=== PATIENT | female | born 1940 | race Caucasian/White ===

== ENCOUNTER 2018-08-05 16:53 | Emergency (ER) | payer MEDICARE ==
--- OUTSIDE RECORDS SUMMARY | 2018-08-05 17:08 | XMS REPORT | Continuity of Care Document ---
:1940 External Reference #:[id number] Author Name Magdalena Alcazar Care Team Providers Name Role Phone Jayda Diaz MD Primary Care Physician Unavailable Payers Date Identification Numbers Payment Provider Subscriber Policy Number: [id number] Medicare Blue o Sejal Raymundo PayID: [id number] [address] [address] [place] [address] Advance Directives Description No Information Available Problems Description No Information Family History Date Family Member(s) Observation Comments General Cancer Social History Type Date Description Comments Sex Unknown Lives With Spouse Occupation Retired ETOH Use Currently consumes alcohol Tobacco Use Start: Unknown End: Patient is a former smoker Unknown Smoking Status Reviewed: 08/05/18 Patient is a former smoker Exercise Type/Frequency Does not exercise Allergies, Adverse Reactions, Alerts Description No Known Drug Allergies Medications Medication Date Status Form Strength Qnty SIG Indications Ordering Provider Shoulder Brace Large 08/05 Active Misc S42.211A F MD Kiara Guidry Bro Brace 08/05 Active 1unit For S42.211A s combined F right nathan Guidry MD humerus and humerus shaft fracture Oxycodone-Acetaminoph 08/05 Active Tablets 5-325mg 56tab 1-2 by s mouth F every 4-6 geeta Guidry as MD needed pain Cyclobenzaprine HCL 08/05 Active Tablets 10mg 60tab 1 tablet s by mouth F tid prn Chao muscle spasm Lisinopril Active Tablets 5mg Take 1 Unknown /0000 Tablet By Mouth Every Day Hydrochlorothiazide 0000 Active Tablets 25mg Take 1 Unknown /0000 Tablet By Mouth Every Day Immunizations Description No Information Available Vital Signs Date Vital Result Comment 08/05/2018 11:20am Height 70 inches 5'10" Weight 180.00 lb Heart Rate 72 /min BP Systolic 128 mmHg BP Diastolic 76 mmHg Respiratory Rate 12 /min Pain Level 4 BMI (Body Mass Index) 25.8 kg/m2 Results Description No Information Available Procedures Description No Information Available Encounters Description No Information Available Plan of Treatment 08/05/2018 - Lavell Guidry, MDS42.211A Unspecified displaced fracture of surgical neck of right humNew Medication:Shoulder Brace Large -Right Bro Brace - For combined right proximal humerus and humerus shaft fractureFollow up:Follow up: August 18, 2018S42.301A Unspecified fracture of shaft of humerus, right arm, initial
--- NOTE | 2018-08-05 17:21 | ED ---
Respiratory - HPI Summary HPI Summary: 78-year-old female presents with shortness of breath and chest pain that resolved three days ago. She states it lasts a couple days. She states that was right-sided lung pain. She does not currently have any pain. States she has shortness breath greatest when she is walking. She denies any chest pain or shortness of breath currently. she admits to occasionally cough. No abdominal pain. No vomiting or nausea vomiting. Pain does not radiate anywhere. Has history of high blood pressure. No other medical conditions. Denies any family cardiac history is nonsmoker. she denies any recent travel. Did recently break her arm. No pain or swelling in calf muscles. - History of Current Complaint Chief Complaint: EDChestPainROMI Stated Complaint: SENT DR MARIN FOR EKG PER Time Seen by Provider: 08/05/18 17:06 Pain Intensity: 4 - Allergy/Home Medications Allergies/Adverse Reactions: Allergies Allergy/AdvReac Type Severity Reaction Status Date / Time No Known Allergies Allergy Verified 08/05/18 17:00 PMH/Surg Hx/FS Hx/Imm Hx Endocrine/Hematology History: Denies: Hx Diabetes Cardiovascular History: Reports: Hx Hypertension - WELL CONTROLLED Musculoskeletal History: Reports: Hx Arthritis Sensory History: Reports: Hx Contacts or Glasses - GLASSES Denies: Hx Hearing Aid Opthamlomology History: Reports: Hx Contacts or Glasses - GLASSES - Surgical History Surgery Procedure, Year, and Place: 2013 LEFT MASTECTOMY JASMY[place]. CAMPOS A TEEN Hx Anesthesia Reactions: No Infectious Disease History: No Infectious Disease History: Denies: Traveled Outside the [place] in Last 30 Days - Family History Known Family History: Positive: Hypertension Negative: Cardiac Disease - Social History Alcohol Use: Daily Alcohol Amount: 1/DAY Substance Use Type: Reports: None Hx Tobacco Use: Yes Smoking Status (MU): Former Smoker Length of Time of Smoking/Using Tobacco: APPROX 15 YRS Have You Smoked in the Last Year: No Review of Systems Negative: Fever Positive: Chest Pain. Negative: Palpitations Positive: Shortness Of Breath, Cough All Other Systems Reviewed And Are Negative: Yes Physical Exam Triage Information Reviewed: Yes Vital Signs On Initial Exam: Initial Vitals Temp Pulse Resp BP Pulse Ox 98 F 100 18 133/76 96 08/05/18 16:57 08/05/18 16:57 08/05/18 16:57 08/05/18 16:57 08/05/18 16:57 Vital Signs Reviewed: Yes Appearance: Positive: Well-Appearing Skin: Positive: Warm, Dry Head/Face: Positive: Normal Head/Face Inspection Eyes: Positive: Normal, EOMI, EARNEST, Conjunctiva Clear ENT: Positive: Normal ENT inspection, Pharynx normal, TMs normal Respiratory/Lung Sounds: Positive: Clear to Auscultation, Breath Sounds Present , Other - nontender chest wall Cardiovascular: Positive: Normal, RRR Abdomen Description: Positive: Nontender, Soft Bowel Sounds: Positive: Present Musculoskeletal: Positive: Normal Neurological: Positive: Normal Psychiatric: Positive: Normal Diagnostics - Vital Signs Vital Signs Temp Pulse Resp BP Pulse Ox 08/05/18 16:57 98 F 100 18 133/76 96 - Laboratory Result Diagrams: 08/05/18 17:35 08/05/18 17:35 Lab Statement: Any lab studies that have been ordered have been reviewed, and results considered in the medical decision making process. - Radiology chest Radiology Interpretation Completed By: ED Physician Summary of Radiographic Findings: nad - CT cta CT Interpretation Completed By: Radiologist Summary of CT Findings: IMPRESSION: 1. Diffuse peripheral reticular fibrotic changes. Dependent consolidation in. both lower lobes could represent atelectasis or superimposed pneumonia. 2. No evidence of pulmonary embolism. 3. Partially visualized comminuted fractures of the proximal right humerus. 4. Other chronic findings, as above. - EKG No standard instances Cardiac Rate: NL EKG Rhythm: Sinus Rhythm Summary of EKG Findings: sinus rhythm, ventricular bigeminy Re-Evaluation - Re-Evaluation First Eval Re-Evaluation Time: 18:06 Comment: still no pain, elevated d-dimer so will get CTA Second Eval Comment: discussed CT results, patient states occasionally cough but with elevated wbc and crp will treat as pneumonia at this time Disposition - Course Course Of Treatment: 78-year-old female presents with right sided chest pain couple days ago. She states she's not had pain in a couple days. She has a right arm fracture that followed up with ortho who sent her here as could not follow up with primary. She states she has occasional shortness of breath when she walks. This is not new. Denies any fever. admits to occasionally cough. On exam nonreproducible chest pain. Lungs clear to auscultation. Heart regular rate and rhythm. ekg shows sinus rhythm with ventricular bigeminy. wbc elevated 13. crp elevated. troponin x2 normal. d-dimer elevated. cta shows no PE but potential pnuemonia. with elevated crp and wbc will treat as such with azithromycin. told to follow up with primary as may need additional respiratory testing for asthma etc and may need further cardiac work up. patient understand and agrees with plan. - Differential Dx - Cardiopulmonary Differential Diagnoses - Cardiopulmonary: CHF, Lower Resp Infection, Pulmonary Embolism - Diagnoses Provider Diagnoses: Chest pain, Shortness of breath, Pneumonia Discharge - Sign-Out/Discharge Documenting (check all that apply): Patient Departure Patient Received Moderate/Deep Sedation with Procedure: No - Discharge Plan Condition: Good Disposition: HOME Prescriptions: Azithromycin TAB* [Zithromax TAB (Z-GABRIEL) 250 mg #6 tabs] 250 mg PO DAILY #4 tab Patient Education Materials: Pneumonia (ED) Referrals: Jayda Diaz MD [Primary Care Provider] - Additional Instructions: will try for potential pneumonia at this time, take azithromycin once a day for 4 days starting tomorrow follow up with primary within 5 days Return to ED if develop any new or worsening symptoms - Billing Disposition and Condition Condition: GOOD Disposition: Home
[2018-08-05 17:50] LABS: ABS Basophils 0.1 10^3/ul (0-0.2); ABS Eosinophils 0.1 10^3/ul (0-0.6); ABS Lymphocytes 1.2 10^3/ul (1.0-4.8); ABS Monocytes 1.1 10^3/ul (0-0.8); ABS Nucleated RBC 0 10^3/ul; Eosinophil % 0.7 %; Hematocrit 41 % (35-47); Hemoglobin 13.8 g/dl (12.0-16.0); Lymphocyte % 8.9 %; Mean Corpuscular HGB Conc 33 g/dl (31-36); Mean Corpuscular Hemoglobin 32 pg (27-31); Mean Corpuscular Volume 96 fL (80-97); Mean Platelet Volume 7.7 fL (7.4-10.4); Nucleated Red Blood Cells % 0; Platelet Count 385 10^3/ul (150-450); Red Cell Distribution Width 15 % (10.5-15); White Blood Count 13.5 10^3/ul (3.5-10.8)
[2018-08-05 18:03] LABS: ALT 55 U/L (7-52); AST 47 U/L (13-39); Albumin 3.8 g/dL (3.2-5.2); Alkaline Phosphatase 81 U/L (34-104); Anion Gap 6 mmol/L (2-11); BUN/Creatinine Ratio 78.3 (8-20); Blood Urea Nitrogen 54 mg/dL (6-24); CO2 Carbon Dioxide 30 mmol/L (22-32); Calcium 9.8 mg/dL (8.6-10.3); Chloride 102 mmol/L (101-111); EGFR African American 100.1 (>60); EGFR Non-African American 82.7 (>60); Globulin 3.7 g/dL (2-4); Glucose 139 mg/dL (70-100); Potassium 3.7 mmol/L (3.5-5.0); Sodium 138 mmol/L (135-145); Total Protein 7.5 g/dL (6.4-8.9)
[2018-08-05 18:05] LABS: Troponin I 0.01 ng/mL (<0.04)
[2018-08-05] MEDS ORDERED: Iohexol 350* (CONTRAST) 500 ML MDV IV ONE (18:07)
[2018-08-05 19:19] LABS: Alcohol < 10 mg/dL (<10)
[2018-08-05 20:10] LABS: C Reactive Protein 152.17 mg/L (<8.01)
[2018-08-05] MEDS ORDERED: Azithromycin TAB* 250 MG PO ONE (20:42)
[2018-08-05 21:16] VITALS: BP 123/74
== END 2018-08-05 21:12 | disposition home or self-care (01) ==
LOC: ED 16:53
DX: S42.301A Unspecified fracture of shaft of humerus, right arm, initial encounter for closed fracture (principal); R07.9 Chest pain, unspecified; J18.9 Pneumonia, unspecified organism; R06.02 Shortness of breath; I10 Essential (primary) hypertension; Z87.891 Personal history of nicotine dependence
CPT/HCPCS: 36415; 71046; 71275; 80053; 80320; 83605; 83880; 84484; 85025; 85379; 86140; 93005; 99284; A9270-GY; G0480; Q9967

== ENCOUNTER 2018-08-16 13:05 | Emergency (ER) | payer MEDICARE ==
[2018-08-16 13:26] VITALS: BP 116/64
--- NOTE | 2018-08-16 13:26 | UC ---
Shortness of Breath HPI - HPI Summary HPI Summary: This is a 78-year-old white female who is brought into the urgent care center by her and son for 2 days of increasing shortness of breath. Relevant to this visit is a fracture of the right humerus diagnosed jul 30 2018. The patient essentially has had difficulty walking, and according to the son has been staying in bed. She was diagnosed on August 05 2018 with pneumonia and started on Zithromax. Subsequent to that, she followed up with her own physician and another antibiotic was prescribed. When she presents to the [facility]. She is significantly short of breath although her pulse ox is 96. She is breathing approximately 24 breaths per minute. She has no complaint of chest pain. She is awake and conversant. The family is concerned about her activities of daily living and her inability to get out of bed except to the bathroom. They also state that her shortness of breath is worse than the previous visit to the emergency department. - History of Current Complaint Stated Complaint: SOB Time Seen by Provider: 08/16/18 13:20 Hx Obtained From: Patient, Family/Mortgage Loan Interviewer - Allergy/Home Medications Allergies/Adverse Reactions: Allergies Allergy/AdvReac Type Severity Reaction Status Date / Time No Known Allergies Allergy Verified 08/05/18 17:00 Home Medications: Home Medications Polyethylene Glycol 3350 [Miralax] 1 packet PO DAILY PRN 08/16/18 [History Confirmed 08/16/18] PMH/Surg Hx/FS Hx/Imm Hx - Additional Past Medical History Additional PMH: PMH: pneumonia, hypertension. mastectomy five years ago. SH: at home in bed. Family hx: cancer Previously Healthy: No - Surgical History Surgical History: Yes Surgery Procedure, Year, and Place: 2013 LEFT MASTECTOMY [place]AY[place]. CAMPOS A TEEN - Family History Known Family History: Positive: Hypertension Negative: Cardiac Disease - Social History Alcohol Use: Daily Alcohol Amount: 1/DAY Substance Use Type: None Smoking Status (MU): Former Smoker Length of Time of Smoking/Using Tobacco: APPROX 15 YRS Have You Smoked in the Last Year: No When Did the Patient Quit Smoking/Using Tobacco: 1970 Household Exposure Type: Cigarettes Review of Systems All Other Systems Reviewed And Are Negative: Yes Respiratory: Positive: Shortness Of Breath Cardiovascular: Positive: Negative Gastrointestinal: Positive: Negative Genitourinary: Positive: Negative Is Patient Immunocompromised?: No Physical Exam Triage Information Reviewed: Yes Appearance: Pain Distress Vital Signs: Appearance: Lying supine; no c/o pain; feels SOB. Eyes: Conjunctiva are clear. Pupils are equal and reactive to light and accommodation. Extra ocular muscle movement is intact. ENT: The hearing is grossly normal, the pharynx is normal, and the TMs are normal. There is no muffled or hoarse voice. No stridor. Neck: The neck is supple and there is no lymphadenopathy. Respiratory: The chest is nontender to palpation and without crepitus. The lungs are clear, there are normal breath sounds, and there is no respiratory distress. No wheezes, rales or rhonchi. Cardiovascular: Heart sounds reveal a regular rate and rhythm. There are no clicks, rubs or murmurs. There are no carotid bruits or thrills. Circulation is grossly intact. Abdomen: The abdomen is soft and nontender. There is no organomegaly. Bowel sounds are present and within normal limits. No point tenderness at McBurneys point. Musculoskeletal: Strength is intact. The patient moves all extremities. Neurological: The patient is alert. Motor and sensory are examination grossly intact. Speech is normal. Psychological: The patient displays age appropriate behavior Skin: Negative for rashes. Shortness of Breath Dx - Course Course Of Treatment: This is a 78-year-old white female who is brought into the urgent care center by her and son for 2 days of increasing shortness of breath. Relevant to this visit is a fracture of the right humerus diagnosed jul 30 2018. The patient essentially has had difficulty walking, and according to the son has been staying in bed. She was diagnosed on August 05 2018 with pneumonia and started on Zithromax. Subsequent to that, she followed up with her own physician and another antibiotic was prescribed. When she presents to the [facility]. She is significantly short of breath although her pulse ox is 96. She is breathing approximately 24 breaths per minute. She has no complaint of chest pain. She is awake and conversant. The family is concerned about her activities of daily living and her inability to get out of bed except to the bathroom. They also state that her shortness of breath is worse than the previous visit to the emergency department. Note is made of her continued bed rest and her history of breast cancer with mastectomy 5 years ago. - Differential Dx/Diagnosis Differential Diagnosis/HQI/PQRI: Pneumonia, Pulmonary Embolism Provider Diagnosis: Shortness of breath Discharge - Sign-Out/Discharge Documenting (check all that apply): Patient Departure All imaging exams completed and their final reports reviewed: No Studies - Discharge Plan Condition: Stable Disposition: TRANS HIGHER LVL OF CARE FAC Referrals: Jayda Diaz MD [Primary Care Provider] - Additional Instructions: Discussed increasing shortness of breath with and son; as well as inability of patient to get out of bed. Patient will be transferred to ED to evaluate increasing shortness of breath. - Billing Disposition and Condition Condition: STABLE Disposition: Trans Higher Lvl of Care Fac
== END 2018-08-16 14:06 | disposition short-term general hospital (02) ==
LOC: UCEAST 13:05
DX: R06.02 Shortness of breath (principal); Z87.891 Personal history of nicotine dependence; I10 Essential (primary) hypertension; Z87.01 Personal history of pneumonia (recurrent)
CPT/HCPCS: 99211; G0463

== ENCOUNTER 2018-08-16 14:31 | Inpatient (IN) | payer MEDICARE ==
--- NOTE | 2018-08-16 15:00 | ED ---
Shortness of Breath - HPI Summary HPI Summary: This patient is a 78 year old F brought in by ambulance to [facility] upon referral from Urgent Care with a chief complaint of SOB since 3 weeks ago. Patient reports that her symptoms have worsened since this morning. The patient also notes that she broke her right arm 3 weeks ago. The patient rates the pain 0/10 in severity. Symptoms aggravated by nothing. Symptoms alleviated by nothing. Patient denies edema or CP. The patient notes that she has been trying to get an appointment to see a bobbin washer but availability has been limited. Patient s son reports that she has an appointment with an orthopedist in 2 days. - History of Current Complaint Time Seen by Provider: 08/16/18 14:51 Hx Obtained From: Patient, Family/Warehouse Delivery Driver - patient's Onset/Duration: Gradual Onset, Lasting Weeks, Still Present, Worse Since - this morning Timing: Constant Current Severity: Mild Dyspnea At: Rest Aggrevating Factors: Nothing Alleviating Factors: Nothing - Allergy/Home Medications Allergies/Adverse Reactions: Allergies Allergy/AdvReac Type Severity Reaction Status Date / Time No Known Allergies Allergy Verified 08/05/18 17:00 PMH/Surg Hx/FS Hx/Imm Hx Endocrine/Hematology History: Denies: Hx Diabetes, Hx Thyroid Disease Cardiovascular History: Reports: Hx Hypertension - WELL CONTROLLED Respiratory History: Denies: Hx Asthma, Hx Chronic Obstructive Pulmonary Disease (COPD) Musculoskeletal History: Reports: Hx Arthritis Sensory History: Reports: Hx Contacts or Glasses - GLASSES Denies: Hx Hearing Aid Opthamlomology History: Reports: Hx Contacts or Glasses - GLASSES - Cancer History Cancer Type, Location and Year: Breast Cancer- mastectomy - Surgical History Surgery Procedure, Year, and Place: 2013 LEFT MASTECTOMY JASMYNEZeyad CAMPOS A TEEN Hx Anesthesia Reactions: No - Family History Known Family History: Positive: Hypertension Negative: Cardiac Disease - Social History Alcohol Use: Daily Alcohol Amount: 1/DAY Substance Use Type: Reports: None Hx Tobacco Use: Yes Smoking Status (MU): Former Smoker Length of Time of Smoking/Using Tobacco: APPROX 15 YRS Have You Smoked in the Last Year: No Review of Systems Negative: Fever Negative: Epistaxis Negative: Chest Pain Positive: Shortness Of Breath Negative: Edema All Other Systems Reviewed And Are Negative: Yes Physical Exam - Summary Physical Exam Summary: VITAL SIGNS: Reviewed. GENERAL: Patient is a well-developed and nourished FEMALE who is lying comfortable in the stretcher. Patient is not in any acute respiratory distress. HEAD AND FACE: No signs of trauma. No ecchymosis, hematomas or skull depressions. No sinus tenderness. EYES: PERRLA, EOMI x 2, No injected conjunctiva, no nystagmus. EARS: Hearing grossly intact. Ear canals and tympanic membranes are within normal limits. MOUTH: Oropharynx within normal limits. NECK: Supple, trachea is midline, no adenopathy, no JVD, no carotid bruit, no c- spine tenderness, neck with full ROM. CHEST: Symmetric, no tenderness at palpation LUNGS: Clear to auscultation bilaterally. No wheezing or crackles. CVS: Regular rate and rhythm, S1 and S2 present, no murmurs or gallops appreciated. ABDOMEN: Soft, non-tender. No signs of distention. No rebound no guarding, and no masses palpated. Bowel sounds are normal. EXTREMITIES: no edema, no cyanosis or clubbing. Decreased mobility in right shoulder secondary to fracture. She is in a shoulder immobilizer. NEURO: Alert and oriented x 3. No acute neurological deficits. Speech is normal and follows commands. SKIN: Dry and warm. Increased turgor of skin Triage Information Reviewed: Yes Vital Signs Reviewed: Yes Diagnostics - Laboratory Result Diagrams: 08/16/18 15:26 08/16/18 15:26 Lab Statement: Any lab studies that have been ordered have been reviewed, and results considered in the medical decision making process. - Radiology CXR Radiology Interpretation Completed By: Radiologist Summary of Radiographic Findings: IMPRESSION: 1. No focal airspace opacification. 2. Unchanged bibasilar predominant fibrotic reticular markings. Dr. Beyer has reviewed this report. - EKG 15:19 Cardiac Rate: NL - at 88 bpm EKG Rhythm: Sinus Rhythm ST Segment: Normal Ectopy: None Summary of EKG Findings: sinus rhythm at 88 bpm with nml axis and no ST elevation. This is a poor quality EKG - Additional Comments Diagnostic Additional Comments: Renal US Interpreted by radiologist. IMPRESSION: 1. Normal-appearing left kidney with no hydronephrosis. 2. Bilateral urinary jets maintained. Dr. Beyer has reviewed this report. Course/Dx - Course Assessment/Plan: This patient is a 78-year-old female who presents to the emergency department with her and son complaining that she is having weakness, unable to ambulate well because of her weakness and she also is becoming short of breath. She also reports that she is unable to ambulate a couple feet because she becomes short of breath. She has an appointment with pulmonology in another week however the symptoms have worsened therefore she came into the emergency department for further workup and management. The patients son also reports that she has been having episodes of confusion. Chest CTA done on 08/05/18 impression: Diffuse peripheral reticular fibrotic changes. The patient in consultation in both lower lobes, representing atelectasis or superimposed pneumonia. No evidence for pulmonary embolism. Patient to be short comminuted fractures of the proximal right humerus. Chest x -ray impression: No acute cuddy pulmonary process. Blood work shows that the room she is awaiting 0.7, hematocrit 46 hemoglobin 14.8 and platelets 383. Sodium is 154, chloride 118, BUNs 46, creatinine .97, glucose 120, AST 72, AST 124, alkaline phosphatase of 210 and CRP of 27.4. Chest x-ray impression: No focal air space opacification. Unchanged bibasilar predominant fibrotic reticular markings. The ED course the patient was given IV fluids, for her dehydration and her hypernatremia. I discuss my physical exam, findings and test results with Dr. Gibson from the hospitalist services and he agrees to admit patient to his services. Patient is hemodynamically stable alert and oriented x 3. - Diagnoses Provider Diagnoses: Dehydration, Hypernatremia - Physician Notifications Discussed Care of Patient With: Linda Gibson Time Discussed With Above Provider: 16:50 Instructed by Provider To: Admit As Inpatient Discharge - Sign-Out/Discharge Documenting (check all that apply): Patient Departure - admit to [facility] Patient Received Moderate/Deep Sedation with Procedure: No - Discharge Plan Condition: Stable Disposition: ADMITTED TO [facility] - Billing Disposition and Condition Condition: STABLE Disposition: Admitted to [facility] - Attestation Statements Document Initiated by Scribe: Yes Documenting Scribe: Irina Godoy Provider For Whom Scribe is Documenting (Include Credential): Larry Beyer Scribe Attestation: IIrina, scribed for Larry Beyer on 08/16/18 at 2006. Scribe Documentation Reviewed: Yes Provider Attestation: The documentation as recorded by the loveibeIrina accurately reflects the service I personally performed and the decisions made by Larry morrow Status of Tammy Document: Viewed
[2018-08-16 15:38] LABS: ABS Basophils 0.1 10^3/ul (0-0.2); ABS Eosinophils 0.5 10^3/ul (0-0.6); ABS Lymphocytes 1.2 10^3/ul (1.0-4.8); ABS Neutrophils 8.8 10^3/ul (1.5-7.7); ABS Nucleated RBC 0 10^3/ul; Eosinophil % 4.5 %; Hematocrit 46 % (33-41); Hemoglobin 14.8 g/dL (12.0-16.0); Lymphocyte % 10.6 %; Mean Corpuscular HGB Conc 32 g/dL (31-36); Mean Corpuscular Hemoglobin 32 pg (27-31); Mean Corpuscular Volume 98 fL (80-97); Mean Platelet Volume 9.2 fL (7.4-10.4); Nucleated Red Blood Cells % 0; Platelet Count 383 10^3/uL (150-450); Red Blood Count 4.69 10^6 /uL (3.70-4.87); Red Cell Distribution Width 15 % (10.5-15); White Blood Count 11.7 10^3/uL (3.5-10.8)
[2018-08-16 15:55] LABS: Albumin 3.7 g/dL (3.2-5.2); BUN/Creatinine Ratio 47.4 (8-20); C Reactive Protein 27.43 mg/L (<8.01); Calcium 9.4 mg/dL (8.6-10.3); EGFR African American 67.6 (>60); EGFR Non-African American 55.8 (>60); Globulin 3.8 g/dL (2-4); Potassium 4.2 mmol/L (3.5-5.0); Total Protein 7.5 g/dL (6.4-8.9)
[2018-08-16 15:57] LABS: Troponin I 0.02 ng/mL (<0.04)
[2018-08-16 15:59] LABS: CKMB ng/mL 0.7 ng/mL (0.6-6.3)
[2018-08-16] MEDS ORDERED: NS 0.9% 1000 ML** 1,000 ML IV ONE (16:36)
[2018-08-16] MEDS ORDERED: Docusate CAP* 100 MG PO PRN (17:28)
[2018-08-16] MEDS ORDERED: Albuterol 2.5 MG/3 ML NEB.SOL* (0.083%) INH PRN (17:28)
[2018-08-16] MEDS ORDERED: cefTRIAXone(*) 1 GM in NS 0.9% 50 ML* 50 ML IVPB ONE (17:42)
[2018-08-16] MEDS ORDERED: Polyethylene Glycol 3350* 17 GM PACKET PO PRN (17:49)
--- NOTE | 2018-08-16 20:02 | HP ---
ADDENDUM NOW INCLUDED ON THIS REPORT CC: Dr. Diaz; Dr. Gregg, Orthopedics * ADMISSION HISTORY AND PHYSICAL: DATE OF ADMISSION: 08/16/18 PRIMARY CARE PROVIDER: Dr. Diaz. ATTENDING FOR THIS ADMISSION: Dr. Linda Oneill.* (DICTATED BY BITA MILLER NP) CHIEF COMPLAINT: Shortness of breath. HISTORY OF PRESENT ILLNESS: This is a very pleasant 78-year-old female patient that started having some issues starting back in July. She had a trip and fall accident with a humerus fracture on 07/30/18. She was experiencing some shortness of breath in a few weeks following her injury. She came to the emergency department on 08/05/18 with a complaint of increasing shortness of breath. At that time, she was given prescription for azithromycin for possibility of pneumonia. She did have a CTA of the chest at that time to rule out PE. The CTA was negative for PE. She did have some peripheral reticular fibrotic changes though and dependent consolidation in both lower lobes, which could represent atelectasis versus a superimposed pneumonia. The patient was discharged to home on oral antibiotics and told to follow up with her PCP. However, the last couple of days, the patient reports she has had increasing shortness of breath; in particular, exertional dyspnea, lack of endurance. Her also reports lack of appetite and noticeable weight loss over the past couple of weeks. The patient does report that she has not had much of an appetite and has not been eating or drinking of late. Today, she presents in the emergency department clinically very dehydrated with some abnormal labs and transaminitis. For these reasons, we were asked to evaluate the patient for admission. PAST MEDICAL HISTORY: The patient's past medical history is significant only for hypertension and breast cancer. PAST SURGICAL HISTORY: The patient's surgical history is significant for mastectomy of the left breast 5 years ago. MEDICATIONS AT HOME: 1. Calcium 600 mg p.o. daily. 2. Glucosamine and chondroitin 1 tab p.o. daily. 3. Lisinopril 5 mg daily. 4. Multivitamin 1 tablet daily. 5. [place]-3 fatty acids 1 cap daily. 6. MiraLAX as needed. 7. She has been on Tamiflu prophylactically for the last 8 days. ALLERGIES: She has no known drug allergies. SOCIAL HISTORY: The patient has a very remote history of smoking when she was in 20s. She quit approximately 50 years ago. She does not drink alcohol. She does not use illicit drugs. She is , lives with her and her son and grandchildren. REVIEW OF SYSTEMS: The patient denies any fever, fatigue, or chills. She does report shortness of breath, but no chest pain. She does feel dry in her own words with anorexia, lack of appetite, and lack of endurance. She denies any nausea or vomiting. No abdominal pain or bloating. Bowel movements are normal. No arthralgias or myalgias. She does have some pain in the right upper extremity secondary to her fracture and no further constitutional complaints. PHYSICAL EXAMINATION GENERAL: Reveals a very thin, somewhat frail, elderly female, but in no acute distress. VITAL SIGNS: Blood pressure 114/64, heart rate 95, respiratory rate 22, O2 saturation 96% on room air with a temperature of 97.2. HEENT: The patient is atraumatic, normocephalic. PERRLA. Nonicteric sclerae. Oral mucosa is very dry. Tongue is pasty in appearance, but midline. NECK: Supple, nontender. No carotid bruit noted. No thyromegaly appreciated. LUNGS: Clear at the apices bilaterally, diminished at the bases, but no wheezing, rhonchi, or rales. CARDIOVASCULAR: S1, S2 present. No murmurs, gallops, or rubs noted. Rate and rhythm are regular. ABDOMEN: Soft, nontender, and nondistended. Positive bowel sounds in all 4 quadrants. No organomegaly noted. : Deferred. MUSCULOSKELETAL: There is no clubbing, no cyanosis, no edema. She has +2 distal pulses palpable, full range of motion. Gross motor and sensation are intact. NEUROLOGIC: Grossly intact. There are no focal deficits. PSYCHIATRIC: She is cooperative and appropriate. SKIN: Warm. Turgor is poor. Quality is very dry and flaky. DIAGNOSTIC STUDIES/LAB DATA: Laboratories: WBCs 11.7, RBCs 4.69, hemoglobin 14.8, hematocrit 46, MCV 98, MCH 32, platelets 383. Sodium 154, potassium 4.2, chloride 118, CO2 of 31, BUN 46, creatinine 0.97, GFR 55.8, glucose 120, lactic acid 1.4, calcium 9.4. Total bilirubin 1.00, AST 72, ALT 124, alk phos 210. Creatine kinase 20, CK-MB 0.7, troponin is negative at 0.02, CRP is 27.43, BNP is 12. Total protein 7.5, albumin 3.7, globulin 3.8. Blood gas: pH is 7.51, CO2 of 36, pO2 of 96, bicarb 29.3, O2 saturation 98.6, base excess of 5.6. Imaging: CTA of the chest as noted above on 08/05/18. Chest x-ray today: Chest x-ray shows no focal airspace opacification, unchanged bibasilar predominant fibrotic reticular markings. EKG: Today's EKG shows regular sinus rhythm with a borderline prolonged QT interval of 485. IMPRESSION: This is a pleasant 78-year-old female patient with history of breast cancer and hypertension, who suffered recent humerus fracture and pneumonia, who presents with acute shortness of breath and dehydration. DIAGNOSES/PLAN: 1. Dehydration, profound. The patient has poor skin turgor and accompanying laboratory values that indicate clinical dehydration. She has received a liter of fluid. We will continue her on normal saline at 75 mL per hour. The patient admits that her p.o. intake has been poor, she has not felt like eating or drinking. We will continue to monitor daily labs. 2. Possible pneumonia with accompanying shortness of breath. The patient was treated with azithromycin as an outpatient. She does have some leukocytosis and had some borderline tachycardia. We will place her empirically on ceftriaxone at this time and continue to monitor her pulmonary status. We also ordered albuterol as needed. Given the reticular changes, my concern is more for fibrotic changes and potential for lung fibrosis. She has never been to a tie bucker or had pulmonary function tests. We will start her on prednisone 50 mg daily and see if she has positive response to this. If she continues to be short of breath, it would be worth then to have a pulmonology consult while she is inpatient. At this point, her pulmonary status is stable and she is not experiencing desaturations. Given the increasing shortness of breath, however, I think a baseline echocardiogram tomorrow would also be prudent to evaluate for left ventricular hypertrophy or any valvular disorders or diastolic dysfunction. 3. Hypertension. The patient is on lisinopril. She is currently normotensive. We will restart tomorrow provided her blood pressure is stable. 4. Protein-calorie malnutrition. The patient endorses significant weight loss in the past 3 weeks, she is unsure how much because she is not weighing herself , but she does state that she has had loss of appetite and her is stating she has lost a significant amount of weight. We will consult Nutrition to further evaluate. In the meantime, we will continue her on regular unrestricted diet and Ensure supplements until she can be seen by Nutrition. 5. Humerus fracture. The patient has been following with Dr. Gregg. She is due for an appointment on Saturday to have her brace adjusted. I have reached out to Dr. Michelet Russell, who is Orthopedics on-call, to see if he can see the patient while she is here in the hospital as she may not be able to make her appointment on Saturday to have her brace adjusted. 6. Transaminitis. The patient does have elevated liver function. AST, ALT, and alk phos are all elevated. This could be secondary to her profound dehydration. She may have been hypotensive at home. It is unclear why her liver enzymes are elevated. At this point, I think of doing a liver ultrasound to ensure there are no changes and rechecking LFTs in the morning. 7. Hyponatremia. Sodium is 154 and she also has elevated BUN and creatinine. I think these are all secondary to her dehydration. She is receiving fluids and we will recheck these labs in the morning. DVT prophylaxis: The patient will be placed on heparin. Diet: Regular unrestricted with Ensure as tolerated. Nutrition has also been consulted. Disposition: The patient will be admitted to medical service. TIME SPENT: Approximately 65 minutes interviewing the patient and evaluating admission plan of care. This plan of care has been discussed with Dr. Linda Oneill, who is in agreement. BITA MILLER, SHEREEN [id number]/[facility] #: [id number] [id number]/CPS #: [id number] ROGE
[2018-08-16] MEDS: predniSONE TAB* 50 MG PO SCH (20:09)
[2018-08-16] MEDS: NS 0.9% 1000 ML** 1,000 ML IV SCH (20:10)
--- NOTE | 2018-08-16 20:11 | HP ---
ADMISSION HISTORY AND PHYSICAL: ADDENDUM: DIAGNOSES: 1. Transaminitis. The patient does have elevated liver function. AST, ALT, and alk phos are all elevated. This could be secondary to her profound dehydration. She may have been hypotensive at home. It is unclear why her liver enzymes are elevated. At this point, I think of doing a liver ultrasound to ensure there are no changes and rechecking LFTs in the morning. 2. Hyponatremia. Sodium is 154 and she also has elevated BUN and creatinine. I think these are all secondary to her dehydration. She is receiving fluids and we will recheck these labs in the morning. BITA MILLER, SHEREEN [id number]/[facility] #: [id number] ROGE
[2018-08-16] MEDS: Heparin VIAL(*) 5000 UNITS/ML VIAL (FIVE THOUSAND) SUBCUT SCH (20:55)
[2018-08-17] MEDS: Heparin VIAL(*) 5000 UNITS/ML VIAL (FIVE THOUSAND) SUBCUT SCH ×2 (05:25→12:56)
[2018-08-17 06:36] LABS: ABS Basophils 0 10^3/ul (0-0.2); ABS Eosinophils 0 10^3/ul (0-0.6); ABS Lymphocytes 0.5 10^3/ul (1.0-4.8); ABS Monocytes 0.1 10^3/ul (0-0.8); ABS Neutrophils 5.5 10^3/ul (1.5-7.7); ABS Nucleated RBC 0 10^3/ul; Eosinophil % 0.1 %; Hematocrit 40 % (33-41); Lymphocyte % 8.6 %; Mean Corpuscular HGB Conc 32 g/dL (31-36); Mean Corpuscular Hemoglobin 32 pg (27-31); Mean Corpuscular Volume 99 fL (80-97); Mean Platelet Volume 9.3 fL (7.4-10.4); Nucleated Red Blood Cells % 0.1; Platelet Count 329 10^3/uL (150-450); Red Blood Count 4.08 10^6 /uL (3.70-4.87); Red Cell Distribution Width 15 % (10.5-15); White Blood Count 6.2 10^3/uL (3.5-10.8)
[2018-08-17 06:53] LABS: Albumin 3.2 g/dL (3.2-5.2); BUN/Creatinine Ratio 45.9 (8-20); Calcium 8.6 mg/dL (8.6-10.3); EGFR African American 78.7 (>60); Globulin 3.3 g/dL (2-4); Potassium 4.1 mmol/L (3.5-5.0); Total Bilirubin 0.7 mg/dL (0.2-1.0); Total Protein 6.5 g/dL (6.4-8.9)
[2018-08-17] MEDS: predniSONE TAB* 50 MG PO SCH (08:58)
[2018-08-17] MEDS: Oseltamivir CAP* 75 MG CAP PO SCH (08:58)
[2018-08-17] MEDS: Lisinopril TAB* 5 MG PO SCH (08:59)
[2018-08-17] MEDS: NS 0.9% 1000 ML** 1,000 ML IV SCH (09:01)
[2018-08-17] MEDS ORDERED: D5W 500 ML BAG* 500 ML IV SCH (12:00)
[2018-08-17] MEDS ORDERED: Azithromycin IV(*) 500 MG in NS 0.9% 250 ML* 250 ML IVPB SCH (12:00)
[2018-08-17] MEDS: D5W 1000 ML BAG* 1,000 ML IV SCH ×2 (12:13→20:15)
[2018-08-17] MEDS ORDERED: Iohexol 350* (CONTRAST) 500 ML MDV IV ONE (12:44)
[2018-08-17] MEDS ORDERED: Heparin VIAL(*) 5000 UNITS/ML VIAL (FIVE THOUSAND) IV SCH (14:00)
[2018-08-17] MEDS ORDERED: Enoxaparin(*) 80 MG/0.8 ML SYR SUBCUT SCH (14:00)
[2018-08-17 14:38] LABS: ABS Basophils 0 10^3/ul (0-0.2); ABS Eosinophils 0 10^3/ul (0-0.6); ABS Lymphocytes 0.4 10^3/ul (1.0-4.8); ABS Monocytes 0.2 10^3/ul (0-0.8); ABS Nucleated RBC 0 10^3/ul; Eosinophil % 0 %; Hematocrit 39 % (33-41); Hemoglobin 12.5 g/dL (12.0-16.0); Lymphocyte % 4.3 %; Mean Corpuscular HGB Conc 32 g/dL (31-36); Mean Corpuscular Hemoglobin 32 pg (27-31); Mean Corpuscular Volume 98 fL (80-97); Mean Platelet Volume 9.2 fL (7.4-10.4); Nucleated Red Blood Cells % 0; Platelet Count 331 10^3/uL (150-450); Red Blood Count 3.94 10^6 /uL (3.70-4.87); Red Cell Distribution Width 15 % (10.5-15); White Blood Count 8.6 10^3/uL (3.5-10.8)
[2018-08-17 14:55] LABS: EGFR African American 93.8 (>60); EGFR Non-African American 77.5 (>60)
[2018-08-17] MEDS: Heparin DRIP 25,000 UNITS(*) 25,000 UNITS/500 ML BAG IV SCH (15:11)
--- NOTE | 2018-08-17 15:46 | PN ---
Subjective Date of Service: 08/17/18 Interval History: Pt was still sob this am.CTA chest ordered due to risk factors for PE. Seen pt again this afternoon and discussed with family.CTA pos for PE U/S showing possible cholecystitis. Pt reports 2 weeks of poor appetite and loss of weight.Denies any abdominal pain. Objective Active Medications: Albuterol (Ventolin 2.5 Mg/3 Ml Neb.July*) 2.5 mg INH [id number] AWAKE PRN PRN Reason: sob/wheezing Docusate Sodium (Colace Cap*) 100 mg PO BID PRN PRN Reason: CONSTIPATION Heparin Sodium (Porcine) (Heparin Vial(*)) 0 units IV .PER PROTOCOL [facility]; Protocol Last Admin: 08/17/18 15:10 Dose: 4,950 units Dextrose (D5w 1000 Ml Bag*) 1,000 mls @ 150 mls/hr IV PER RATE [facility] Last Admin: 08/17/18 12:13 Dose: 150 mls/hr Heparin Sodium/Dextrose (Heparin Drip 25,000 Units(*)) 25,000 units in 500 mls @ 0 mls/hr IV PER RATE [facility]; Protocol Last Admin: 08/17/18 15:11 Dose: 24 mls/hr Ciprofloxacin/Dextrose (Cipro 400 Mg Ivpremix(*)) 400 mg in 200 mls @ 200 mls/ hr IVPB Q12H [facility] Metronidazole/Sodium Chloride (Flagyl 500 Mg Ivpb*) 500 mg in 100 mls @ 100 mls /hr IVPB Q8H [facility] Lisinopril (Prinivil Tab*) 5 mg PO QAM [facility] Last Admin: 08/17/18 08:59 Dose: 5 mg Oseltamivir Phosphate (Tamiflu Cap*) 75 mg PO DAILY [facility] Last Admin: 08/17/18 08:58 Dose: 75 mg Polyethylene Glycol/Electrolytes (Miralax*) 17 gm PO DAILY PRN PRN Reason: CONSTIPATION Prednisone (Deltasone Tab*) 50 mg PO DAILY [facility] Last Admin: 08/17/18 08:58 Dose: 50 mg Vital Signs - 8 hr 08/17/18 08/17/18 08/17/18 07:46 09:02 13:30 Temperature 98.2 F Pulse Rate 80 78 84 Respiratory 16 20 Rate Blood Pressure 101/51 113/65 102/42 (mmHg) O2 Sat by Pulse 100 98 Oximetry Oxygen Devices in Use Now: None Eyes: No Scleral Icterus Ears/Nose/Mouth/Throat: NL Teeth, Lips, Gums Neck: NL Appearance and Movements; NL JVP Respiratory: - - Decreased breath sounds bilaterally Cardiovascular: NL Sounds; No Murmurs; No JVD Abdominal: - - min tenderness RUQ no rebound no guarding Extremities: No Edema Neurological: Alert and Oriented x 3 Result Diagrams: 08/17/18 14:30 08/17/18 14:30 Microbiology and Other Data: Microbiology 08/16/18 15:26 Aerobic Blood Culture - Preliminary Blood Venous No Growth Day 1 Anaerobic Blood Culture - Preliminary No Growth Day 1 Assess/Plan/Problems-Billing Assessment: - Patient Problems (1) Pulmonary embolus Current Visit: Yes Status: Acute Code(s): I26.99 - OTHER PULMONARY EMBOLISM WITHOUT ACUTE COR PULMONALE SNOMED Code(s): 12075607 Comment: Will place on Heparin drip for now as she may need percutaneous cholecystostomy by IR per discussion with surgery and will need to talk to ortho on surgical plans as well Discussed NOAC( Eliquis/Xarelto) versus Coumadin risks and benefits with patient and her family( son and ). They will think about it and will decide based on course and need for procedures. Covered with Heparin drip currently (2) Cholecystitis Current Visit: Yes Status: Acute Code(s): K81.9 - CHOLECYSTITIS, UNSPECIFIED SNOMED Code(s): 75738935 Comment: LFT improving on antibiotics.Recd Ceftriaxone 1 dose Possible cholecystitis. GB sludge and some pericholecystic fluid.No pain but has been feeling poorly,lack of apetite, weight loss over 2 weeks.Will monitor for fever.Leukocytosis improved on abx Will place on Cipro and Flagyl for gram neg and anaerobic coverage, mult recent hospital visits. Can also consider Ceftriaxone alone as mild based on clinical progress Requesting consult with Dr Hammer. He rec IV antibiotics and if no improvement to consider IR drainage/ perc cholecystostomy and surgery in 3 months when stable.New PE as described above (3) Humerus fracture Current Visit: Yes Status: Acute Code(s): S42.309A - UNSP FRACTURE OF SHAFT OF HUMERUS, UNSP ARM, INIT SNOMED Code(s): 85647879 Comment: Has not had surgery Pt had a f/u appt with Dr Marie tomorrow to discuss need for surgery/ management Ortho consult requested at time of admission Will need to f/u ortho tomorrow/Saturday
[2018-08-17] MEDS ORDERED: Ciprofloxacin 400MG IVPREMIX(* 400 MG/200 ML BAG IVPB SCH (16:00)
[2018-08-17] MEDS: metroNIDAZOLE IV 500 MG/100ML* 500 MG/100 ML BAG IVPB SCH (16:37)
[2018-08-17] MEDS ORDERED: cefTRIAXone(*) 1 GM in NS 0.9% 50 ML* 50 ML IVPB SCH (18:00)
[2018-08-17] MEDS: Ciprofloxacin 400MG IVPREMIX(* 400 MG/200 ML BAG IVPB SCH (18:24)
[2018-08-17 18:38] LABS: Urine Appearance Clear; Urine Bilirubin Negative (Negative); Urine Blood Negative (Negative); Urine Color Yellow; Urine Glucose Negative (Negative); Urine Ketones Negative (Negative); Urine Nitrite Negative (Negative); Urine Protein Negative (Negative); Urine Specific Gravity 1.044 (1.010-1.030); Urine Urobilinogen Negative (Negative)
--- NOTE | 2018-08-17 21:04 | CONS ---
CC: Dr. Hammer; Dr. Diaz DATE OF CONSULT: 08/17/18 HISTORY OF PRESENT ILLNESS: The patient is a 78-year-old female who came to the hospital with shortness of breath and poor appetite and dehydration, possibly pneumonia. She had a recent fracture of the humerus. She has just now been diagnosed as a pulmonary embolus and there is a question of cholecystitis, that is the reason I have been consulted. She has had an ultrasound of the abdomen because of elevated liver chemistries and was found to have gallstones and some pericholecystic fluid. By history, she denies any right upper quadrant pain or pain radiating to the back. She denies any history of gallbladder disease. On examination, she is a somewhat frail appearing elderly woman. She does not appear acutely ill. She is not jaundiced. Her abdomen is soft, flat and nontender. Right upper quadrant palpation reveals no Goldsmith sign, no guarding, no rebound tenderness. All in all, I would say her exam is quite benign in terms of the gallbladder. Nothing that suggests cholecystitis. I do not think that her gallbladder ultrasound is definitive for cholecystitis and I think when coupled with her clinical exam, I do not think we can give her diagnosis of cholecystitis. Therefore, I do not think she needs any other treatment for the gallbladder. If there is additional concern about the gallbladder or if one wants to rule out gallbladder disease more definitively, then nuclear biliary scan (HIDA) scan could be carried out to confirm the patency of the cystic duct. However, at the present I did not see sufficient clinical evidence of cholecystitis to justify putting her through any treatment of gallbladder. Therefore, other medical issues should be dealt with. [id number]/[facility] #: [id number] [facility]
[2018-08-18] MEDS: metroNIDAZOLE IV 500 MG/100ML* 500 MG/100 ML BAG IVPB SCH ×2 (01:20→08:04)
[2018-08-18] MEDS: Ciprofloxacin 400MG IVPREMIX(* 400 MG/200 ML BAG IVPB SCH (04:37)
[2018-08-18 07:36] LABS: ABS Basophils 0 10^3/ul (0-0.2); ABS Eosinophils 0.4 10^3/ul (0-0.6); ABS Monocytes 0.6 10^3/ul (0-0.8); ABS Neutrophils 8.3 10^3/ul (1.5-7.7); ABS Nucleated RBC 0 10^3/ul; Eosinophil % 3.9 %; Hematocrit 35 % (33-41); Hemoglobin 11.4 g/dL (12.0-16.0); Lymphocyte % 9.7 %; Mean Corpuscular HGB Conc 33 g/dL (31-36); Mean Corpuscular Hemoglobin 32 pg (27-31); Mean Corpuscular Volume 98 fL (80-97); Mean Platelet Volume 9.1 fL (7.4-10.4); Nucleated Red Blood Cells % 0; Platelet Count 244 10^3/uL (150-450); Red Blood Count 3.55 10^6 /uL (3.70-4.87); Red Cell Distribution Width 14 % (10.5-15); White Blood Count 10.4 10^3/uL (3.5-10.8)
[2018-08-18 07:47] LABS: Albumin 2.7 g/dL (3.2-5.2); Potassium 3.5 mmol/L (3.5-5.0); Total Bilirubin 0.5 mg/dL (0.2-1.0)
[2018-08-18 07:53] LABS: BUN/Creatinine Ratio 43.7 (8-20); EGFR African American 96.8 (>60); Globulin 2.6 g/dL (2-4); Total Protein 5.3 g/dL (6.4-8.9)
[2018-08-18] MEDS: D5W 1000 ML BAG* 1,000 ML IV SCH ×2 (08:03→17:57)
[2018-08-18] MEDS: Lisinopril TAB* 5 MG PO SCH (08:08)
[2018-08-18] MEDS: Oseltamivir CAP* 75 MG CAP PO SCH (08:09)
[2018-08-18] MEDS: predniSONE TAB* 50 MG PO SCH (08:09)
[2018-08-18] MEDS: Heparin DRIP 25,000 UNITS(*) 25,000 UNITS/500 ML BAG IV SCH ×3 (10:17→21:25)
--- NOTE | 2018-08-18 18:15 | PN ---
Subjective Interval History: Stopping prednisone and cipro/flagyl given unclear indication. Pt seems very unlikely to have infected gallbladder, also likely that dyspnea is from PE and not new reactive airway disease. Pt and report improvement in symptoms and cognition. Pending conversation with ortho regarding anticoagulation. Would prefer to switch patient from heparing to Eliquis soon but sill pend final clearance from ortho. Objective Active Medications: Albuterol (Ventolin 2.5 Mg/3 Ml Neb.July*) 2.5 mg INH [id number] AWAKE PRN PRN Reason: sob/wheezing Heparin Sodium (Porcine) (Heparin Vial(*)) 0 units IV .PER PROTOCOL [facility]; Protocol Last Admin: 08/17/18 15:10 Dose: 4,950 units Dextrose (D5w 1000 Ml Bag*) 1,000 mls @ 150 mls/hr IV PER RATE [facility] Last Admin: 08/18/18 08:03 Dose: 150 mls/hr Heparin Sodium/Dextrose (Heparin Drip 25,000 Units(*)) 25,000 units in 500 mls @ 0 mls/hr IV PER RATE [facility]; Protocol Last Admin: 08/18/18 14:41 Dose: 21 mls/hr Lisinopril (Prinivil Tab*) 5 mg PO QAM [facility] Last Admin: 08/18/18 08:08 Dose: 5 mg Oseltamivir Phosphate (Tamiflu Cap*) 75 mg PO DAILY [facility] Last Admin: 08/18/18 08:09 Dose: 75 mg Polyethylene Glycol/Electrolytes (Miralax*) 17 gm PO DAILY PRN PRN Reason: CONSTIPATION Vital Signs - 8 hr 08/18/18 08/18/18 11:35 15:21 Temperature 97.8 F 98.4 F Pulse Rate 75 82 Respiratory 16 16 Rate Blood Pressure 101/51 98/50 (mmHg) O2 Sat by Pulse 100 98 Oximetry Oxygen Devices in Use Now: None Appearance: calm, alert, concersant, no acute distress Ears/Nose/Mouth/Throat: Mucous Membranes Moist Respiratory: - - clear anteriorly Cardiovascular: RRR Abdominal: - - soft, nontender, no RUQ pain, neg Goldsmith's sign, no guarding Extremities: - - R arm with sling and kimberly bandage, +swelling compared to L Result Diagrams: 08/18/18 07:27 08/18/18 07:27 Microbiology and Other Data: Microbiology 08/16/18 15:26 Aerobic Blood Culture - Preliminary Blood Venous No Growth Day 1 Anaerobic Blood Culture - Preliminary No Growth Day 1 Assess/Plan/Problems-Billing Assessment: 78W with HTN, h/o breast cancer, and recent humerus fracture, presents with subacute dyspnea and poor PO, found dehydrated and with new PE. Now on AC, IVF, and pending final plan from ortho before switching from IV to PO anticoagulation. - Patient Problems (1) Pulmonary embolus Comment: Likely from recent immobilization after arm fracture at end of Jul 2018. - cont on IV heparin, will switch to Eliquis PO when cleared by ortho (2) Humerus fracture Comment: Had f/u today with Dr. Marie to discuss need for surgery/ management , but still admitted. Noted that ortho ordered RUE xrays. - pending ortho recs - will discuss with them possibility of switching IV heparin for AC to Eliquis - PT/OT (3) Dehydration Comment: from poor PO likely in setting of recent fracture and new PE - cont IVF for now, likely DC tomorrow - f/u BMP (4) Cholecystitis Comment: Very low concern given lack of infectious signs on vitals, abdominal exam, pt reported symptoms, and normal WBC. Will stop antibiotics and continue to follow. Surg consulted and also thought low likelihood of galbladder infx .
--- NOTE | 2018-08-18 20:45 | CONS ---
CONSULTATION REPORT: DATE OF CONSULTATION: 08/18/18 PRIMARY CARE PROVIDER: Dr. Diaz. CHIEF COMPLAINT: Right humerus fracture followup visit. HISTORY OF PRESENT ILLNESS: The patient is a 78-year-old female who fell fracturing her right humerus on 07/30/18. Following her injury, she has had shortness of breath and presented to the emergency room with diagnosis of pulmonary embolism. Today, she states that her right upper extremity is not painful. She has no numbness or tingling associated. She has been in a Bro brace, she understands that she is nonweightbearing of her right upper extremity and she was due for an appointment with Dr. Guidry for followup of this fracture today. PAST MEDICAL HISTORY: Significant for hypertension, breast cancer. PAST SURGICAL HISTORY: Mastectomy of left breast. HOME MEDICATIONS: 1. Calcium 600 mg daily. 2. Glucosamine/chondroitin. 3. Lisinopril 5 mg daily. 4. Multivitamin 1 tab daily. 5. [place]-3 fatty acid 1 capsule daily. 6. MiraLAX as needed. ALLERGIES: No known drug allergies. SOCIAL HISTORY: Former smoker. Does not drink alcohol. Does not use drugs. Patient is . REVIEW OF SYSTEMS: General: No recent illness. Recent exposure to flu, on Tamiflu. HEENT: Had no head trauma. Heart: No chest pain. Respiratory: No shortness of breath currently, though she has been short of breath recently. Abdomen: No abdominal pain. No nausea. Musculoskeletal: Positive for right upper extremity pain. Known humerus fracture. Neuro: Negative for numbness or tingling of extremities. Skin: No rash or lesions reported. Hematology: Positive for pulmonary embolism. PHYSICAL EXAMINATION: Vital Signs: Temperature 98.4, pulse rate 82, respiratory rate 16, oxygen saturation 98, blood pressure 98/50. General: Well -appearing, in no acute distress. HEENT: Head is normocephalic, atraumatic. Extraocular movements intact. Lungs: Clear to auscultation bilaterally. Cardio: S1, S2. Abdomen: Bowel sounds normoactive, soft, nontender. No distention. Musculoskeletal: Patient is wearing a Bro brace on her right humerus, which is fitting well. Sensation is intact to light touch throughout this extremity including area over the deltoid. The extremity is warm and well perfused. Radial pulses 2+. Cap refills less than 2 seconds distally. Flexion and extension at the wrist intact. Able to produce a thumps up, a OK and crossed finger sign. Left upper extremity, skin envelope intact. Moves extremity well. Nontender. Bilateral lower extremities are nontender. No obvious bony deformity. DIAGNOSTIC STUDIES: Repeat humerus and shoulder x-rays of right upper extremity were done today. Impression per Radiology include spiral fracture of the diaphysis of the humerus with proximal extension into the surgical neck and greater tuberosity, persistent one shaft with predominant anterior displacement at the mid diaphysis, no significant healing response at the diaphysis, mild osseous remodeling into greater tuberosity consistent with early healing response, normal AC and glenohumeral joint alignment with moderate AC joint and mild glenohumeral joint osteoarthritis. Shoulder x-ray interpretation per Radiology consistent with humerus x-ray report. IMPRESSION: Right humerus fracture with improved alignment with use of Bro brace PLAN: Patient is nonweightbearing of her right upper extremity. Non-operative management. Bro brace is to remain in place with a tight fit, do not hesitate to call orthopedics or drop wire hanger for questions of fit/ any other concerns. Follow up with Dr Guidry in the orthopedic office next week, call for appt [phone]. Okay to anticoagulate for PE. DERRELL DENNIS [id number]/[facility] [place] #: [id number] [place]
[2018-08-19 03:26] LABS: ABS Basophils 0 10^3/ul (0-0.2); ABS Eosinophils 0.6 10^3/ul (0-0.6); ABS Lymphocytes 1.1 10^3/ul (1.0-4.8); ABS Monocytes 0.7 10^3/ul (0-0.8); ABS Neutrophils 7.7 10^3/ul (1.5-7.7); ABS Nucleated RBC 0 10^3/ul; Eosinophil % 6.1 %; Hematocrit 33 % (33-41); Hemoglobin 11.1 g/dL (12.0-16.0); Lymphocyte % 11.1 %; Mean Corpuscular HGB Conc 33 g/dL (31-36); Mean Corpuscular Hemoglobin 32 pg (27-31); Mean Corpuscular Volume 96 fL (80-97); Mean Platelet Volume 9.3 fL (7.4-10.4); Nucleated Red Blood Cells % 0.1; Platelet Count 245 10^3/uL (150-450); Red Blood Count 3.45 10^6 /uL (3.70-4.87); Red Cell Distribution Width 14 % (10.5-15); White Blood Count 10.2 10^3/uL (3.5-10.8)
[2018-08-19 03:41] LABS: Albumin 2.5 g/dL (3.2-5.2); BUN/Creatinine Ratio 47.5 (8-20); Calcium 7.8 mg/dL (8.6-10.3); EGFR African American 119.9 (>60); EGFR Non-African American 99.1 (>60); Globulin 2.4 g/dL (2-4); Indirect Bilirubin 0.2 mg/dL (0.3-1.0); Total Bilirubin 0.4 mg/dL (0.2-1.0); Total Protein 4.9 g/dL (6.4-8.9)
[2018-08-19] MEDS: Calcium/Vitamin D TAB 250/125* TAB PO SCH ×2 (09:24→20:38)
[2018-08-19] MEDS: Oseltamivir CAP* 75 MG CAP PO SCH (09:24)
[2018-08-19] MEDS: KCL 20 MEQ/100 ML IVPREMIX* 20 MEQ/100 ML BAG IV SCH ×2 (09:24→13:26)
[2018-08-19] MEDS: D5W 1000 ML BAG* 1,000 ML IV SCH (10:00)
--- NOTE | 2018-08-19 13:08 | PN ---
Subjective Interval History: Pt out of bed to chair. Feeling stronger and with improved appetite. No fevers off antibiotics > 24 hr. Will stop Tamiflu ppx given over 1 week since exposure and pt with h/o vaccine this season. Stopped RITA-I yesterday given low BPs this admission. Pending PT/OT. Pending final ortho recs. If planned for procedure, will keep on IV heparin. If not, will switch to apixaban. Objective Active Medications: Albuterol (Ventolin 2.5 Mg/3 Ml Neb.July*) 2.5 mg INH RT.G6AC-IPIFK AWAKE PRN PRN Reason: sob/wheezing Calcium/Vitamin D (Oscal D Tab 250/125*) 1 tab PO BID TIMOTHY Last Admin: 08/19/18 09:24 Dose: 1 tab Heparin Sodium (Porcine) (Heparin Vial(*)) 0 units IV .PER PROTOCOL [facility]; Protocol Last Admin: 08/17/18 15:10 Dose: 4,950 units Heparin Sodium/Dextrose (Heparin Drip 25,000 Units(*)) 25,000 units in 500 mls @ 0 mls/hr IV PER RATE [facility]; Protocol Last Admin: 08/18/18 21:25 Dose: 21 mls/hr Polyethylene Glycol/Electrolytes (Miralax*) 17 gm PO DAILY PRN PRN Reason: CONSTIPATION Vital Signs - 8 hr 08/19/18 08/19/18 08/19/18 07:44 11:43 12:00 Temperature 97.8 F 97.9 F Pulse Rate 72 76 Respiratory 16 20 18 Rate Blood Pressure 108/60 112/72 (mmHg) O2 Sat by Pulse 99 99 Oximetry Oxygen Devices in Use Now: None Appearance: well appearing, conversant Respiratory: Clear to Auscultation Cardiovascular: RRR Abdominal: NL Sounds; No Tenderness; No Distention Extremities: - - RUE in sling with brace; diffusely edematous, eccymosis Neurological: Alert and Oriented x 3 Result Diagrams: 08/19/18 03:19 08/19/18 03:19 Microbiology and Other Data: Microbiology 08/16/18 15:26 Aerobic Blood Culture - Preliminary Blood Venous No Growth Day 1 Anaerobic Blood Culture - Preliminary No Growth Day 1 Assess/Plan/Problems-Billing Assessment: 78W with HTN, h/o breast cancer, and recent humerus fracture, presents with subacute dyspnea and poor PO, found dehydrated and with new PE. Now on AC and pending final plan from ortho before switching from IV to PO anticoagulation. - Patient Problems (1) Pulmonary embolus Comment: Likely from recent immobilization after arm fracture at end of Jul 2018. - cont on IV heparin, will switch to Eliquis PO when cleared by ortho (2) Humerus fracture Comment: No surgical intervention yet. - pending ortho recs - will discuss with them possibility of switching IV heparin for AC to Eliquis - PT/OT (3) Dehydration Comment: - appetite improved, no longer with pre-renal azotemia - will stop IVF - f/u BMP, replete lytes prn (4) DVT prophylaxis Comment: on therapeutic anticoagulation Status and Disposition: Inpatient while on IV anticoagulation.
[2018-08-19 16:47] LABS: BUN/Creatinine Ratio 41.1 (8-20); Calcium 8.1 mg/dL (8.6-10.3); EGFR African American 127.4 (>60); EGFR Non-African American 105.3 (>60); Magnesium 2.2 mg/dL (1.9-2.7); Phosphorus 1.2 mg/dL (2.5-5.0); Potassium 3.8 mmol/L (3.5-5.0)
[2018-08-19 17:24] LABS: TSH (Thyroid Stimulating Horm) 4.38 mcIU/mL (0.34-5.60)
[2018-08-19 17:39] LABS: Vitamin D Total 25(OH) 40.8 ng/mL (20-50)
[2018-08-19] MEDS ORDERED: SODIUM PHOSPHATE IVPB ONE (18:30)
[2018-08-19] MEDS ORDERED: NS IVPB ONE (18:30)
[2018-08-20] MEDS: Heparin DRIP 25,000 UNITS(*) 25,000 UNITS/500 ML BAG IV SCH (00:57)
[2018-08-20 07:29] VITALS: BP 102/54
[2018-08-20 07:36] LABS: Calcium 7.8 mg/dL (8.6-10.3); Potassium 3.9 mmol/L (3.5-5.0)
[2018-08-20 07:42] LABS: EGFR African American 163.9 (>60); EGFR Non-African American 135.5 (>60)
[2018-08-20] MEDS: Calcium/Vitamin D TAB 250/125* TAB PO SCH (08:29)
[2018-08-20] MEDS ORDERED: Apixaban* 5 MG TAB PO SCH (09:00)
--- NOTE | 2018-08-20 13:21 | DS ---
CC: Jayda Diaz MD; Dr. Guidry DISCHARGE SUMMARY: DATE OF ADMISSION: 08/16/18 DATE OF DISCHARGE: 08/20/18 PRIMARY CARE PHYSICIAN: Jayda Diaz MD. CONDITION: Improved. PRIMARY DIAGNOSIS: Pulmonary embolism. SECONDARY DIAGNOSIS: Humerus fracture. CONSULTS: Orthopedic Surgery, Dr. Guidry. PERTINENT STUDIES: CTA of the chest on 08/17/18 showing pulmonary arterial filling defect consistent with pulmonary embolism of the segmental branches of the right lower lobe with stable pulmonary fibrotic changes. Gallbladder ultrasound showed fatty infiltrate of the liver, cholelithiasis with mild gallbladder wall thickening and small amounts of pericholecystic fluid , which is indeterminant for acute cholecystitis and an echogenic right kidney suggestive of medical renal disease. Right humerus x-ray on 08/18/18 showing spiral fracture of the diaphysis of the humerus with proximal extensions to the surgical neck and greater tuberosity. Persistent shaft with predominant anterior displacement at the mid diaphysis. No significant healing response is evident at the diaphysis, mild osseous remodeling at the greater tuberosity consistent with early healing response. Moderate acromioclavicular and glenohumeral joint osteoarthritis with normal joint alignment, diffuse swelling of tissues. HISTORY OF PRESENT ILLNESS: An 89-year-old woman with history of hypertension and breast cancer, status post mastectomy and recent humerus fracture after a fall approximately 3 weeks prior to presentation, who began experiencing subacute shortness of breath shortly after her fall. The shortness of breath was progressive and on she came to the ER with complaints of increased shortness of breath, was given a prescription for azithromycin. A CT at that time was negative for pulmonary embolism. However, since discharge, she has had increasing shortness of breath with exertional dyspnea and increasing fatigue and decreasing appetite. The patient does report that she has been eating and drinking less and the has noticed weight loss over the last couple of weeks. HOSPITAL COURSE: In the ER, the patient's CTA resulted positive for pulmonary embolus and she was started on IV heparin, in case of need for orthopedic procedure. She was noted to have elevated liver enzymes without RUQ symptoms, negative Goldsmith's sign. She was evaluated by Surgery for concern for cholecystitis given indeterminant right upper quadrant ultrasound and it was believed that she did not have any acute gallbladder pathology. She was started on IV fluids for dehydration per history and physical exam. While on IV fluids, her creatinine, which was initially 0.97 decreased to 0.45. Throughout hospitalization her appetite returned. She started eating and drinking more, so IV fluids were stopped. She was evaluated by Physical Therapy, who deemed her appropriate for subacute rehab placement. Ortho consult stated that they would not plan for OR procedure for humerus fracture, so she was switched from IV heparin to oral apixaban. Throughout admission, her blood pressures remained in the low normal range, so her home dose of lisinopril was stopped. She also completed a course of Tamiflu for prior flu exposure from her granddaughter. On the day of discharge, the patient reports feeling closer to her baseline. She denies shortness of breath, abdominal pain, nausea or vomiting. PHYSICAL EXAMINATION: She remained afebrile. Heart rate 80, blood pressure 102 /54, oxygen saturation 97% on room air. General: Well-appearing woman, sitting in chair. Alert and conversant. Heart: Regular rate and rhythm. No murmurs, gallops, rubs. Lungs: Clear to auscultation bilaterally. Abdomen: Soft, nontender, nondistended. Lower Extremities: No edema. Warm and well perfused. Right upper extremity with diffuse swelling ecchymosis unchanged from prior, in a splint. DISCHARGE PLAN: She is to go to subacute rehab. She should have followup with her orthopedic surgeon within 1 week of discharge for monitoring of humerus fracture. She should also see her primary care physician within 1 to 2 weeks of discharge. She was started on apixaban 10 mg twice a day for 7 days for PE and will need to be switched to 5 mg twice a day after the first 7 days. Her primary care physician should continue to monitor her blood pressure off antihypertensives and should also continue to monitor her hepatic panel given recent increase, although this is thought likely from dehydration with poor perfusion to the liver. DISCHARGE MEDICATIONS: 1. Apixaban 10 mg p.o. b.i.d. for 7 days followed by 5 mg twice a day for at least 3 months. 2. Multivitamin 1 tablet daily. 3. Calcium/vitamin D combo pill 1 tablet twice a day. 4. [place]-3 at 1000 mg capsule, 1 cap p.o. daily. 5. Polyethylene glycol, MiraLAX 1 packet daily as needed for constipation. TIME SPENT: Approximately 60 minutes spent on discharge of this patient, more than half of which was spent with care coordination at bedside for interview and exam. [id number]/CPS #: [id number] ROGE
== END 2018-08-20 14:35 | DRG 176 ==
LOC: ED 14:31 → MED 17:28
PROVIDERS: ADMIT Internal Medicine; ATTEND Internal Medicine
DX: I26.99 Other pulmonary embolism without acute cor pulmonale (principal); S42.341A Displaced spiral fracture of shaft of humerus, right arm, initial encounter for closed fracture; S42.301A Unspecified fracture of shaft of humerus, right arm, initial encounter for closed fracture; E87.0 Hyperosmolality and hypernatremia; K80.00 Calculus of gallbladder with acute cholecystitis without obstruction; E46 Unspecified protein-calorie malnutrition; M19.011 Primary osteoarthritis, right shoulder; R79.89 Other specified abnormal findings of blood chemistry; K76.0 Fatty (change of) liver, not elsewhere classified; R74.0 Nonspecific elevation of levels of transaminase and lactic acid dehydrogenase [LDH]; I10 Essential (primary) hypertension; M19.90 Unspecified osteoarthritis, unspecified site; W19.XXXA Unspecified fall, initial encounter; E86.0 Dehydration; Z72.89 Other problems related to lifestyle; Z85.3 Personal history of malignant neoplasm of breast; Z90.12 Acquired absence of left breast and nipple; Z82.49 Family history of ischemic heart disease and other diseases of the circulatory system; Z87.891 Personal history of nicotine dependence; Z91.81 History of falling; Y92.9 Unspecified place or not applicable; Z68.20 Body mass index [BMI] 20.0-20.9, adult
CPT/HCPCS: 36415; 71046; 71275; 76705; 80048; 80053; 80076; 81003; 82306; 82550; 82553; 82565; 82607; 82803; 83605; 83735; 83880; 84100; 84443; 84484; 84520; 85025; 85730; 86140; 87040; 93005; 99284; A9270-GY; G8978-GP-CL; G8979-GP-CI; G8987-GO-CL; G8988-GO-CJ; J0456; J0696; J0744; J1644; J3480; J3490; J7512; Q9967

== ENCOUNTER 2018-11-16 13:23 | Emergency (ER) | payer MEDICARE ==
--- NOTE | 2018-11-16 13:28 | UC ---
Skin Complaint HPI - HPI Summary HPI Summary: 78 yo female presents accompanied by . She tells me that the nurse that was washing her and helping her shower yesterday noticed a red sore to pt's upper back and recommended she be seen. Pt has mild pain to the area, but otherwise has not noticed it. Denies fever, chills. No hx of MRSA. - History of Current Complaint Chief Complaint: UCSkin Time Seen by Provider: 11/16/18 13:28 Stated Complaint: SOFT TISSUE Hx Obtained From: Patient Onset/Duration: Sudden Onset Onset Severity: Mild Current Severity: Mild Pain Intensity: 2 Pain Scale Used: 0-10 Numeric - Allergy/Home Medications Allergies/Adverse Reactions: Allergies Allergy/AdvReac Type Severity Reaction Status Date / Time No Known Allergies Allergy Verified 08/05/18 17:00 Home Medications: Home Medications Alendronate (NF) [Fosamax (NF)] 70 mg PO Q30D 11/16/18 [History Confirmed ] PMH/Surg Hx/FS Hx/Imm Hx - Additional Past Medical History Additional PMH: PE BRCA - Surgical History Surgical History: Yes Surgery Procedure, Year, and Place: 2013 LEFT MASTECTOMY [facility]. APPENDECTOMY - Family History Known Family History: Positive: Hypertension Negative: Cardiac Disease - Social History Lives: Assisted Living Alcohol Use: Daily Alcohol Amount: says one cup a day, except when needing to drive Substance Use Type: None Smoking Status (MU): Former Smoker Length of Time of Smoking/Using Tobacco: APPROX 15 YRS Have You Smoked in the Last Year: No When Did the Patient Quit Smoking/Using Tobacco: 1971 Household Exposure Type: Cigarettes - Immunization History Most Recent Influenza Vaccination: 2018 Most Recent Pneumonia Vaccination: unknown Review of Systems All Other Systems Reviewed And Are Negative: Yes Constitutional: Positive: Negative Skin: Positive: Other - Lesion upper back Respiratory: Positive: Negative Cardiovascular: Positive: Negative Gastrointestinal: Positive: Negative Neurovascular: Positive: Negative Neurological: Positive: Negative Psychological: Positive: Negative Physical Exam - Summary Physical Exam Summary: GENERAL: NAD. WDWN. No pain distress. SKIN: Mid back with 1.5cm mildly erythematous abscess. Scant thick yellow discharge. Mildly TTP. No streaking or warmth. CHEST: No accessory muscle use. Breathing comfortably and in no distress. CV: Pulses intact. Cap refill <2seconds NEURO: Alert. PSYCH: Age appropriate behavior. Triage Information Reviewed: Yes Vital Signs: Vital Signs: Temp Pulse Resp BP Pulse Ox 97.6 F 89 18 127/61 98 11/16/18 13:27 11/16/18 13:27 11/16/18 13:27 11/16/18 13:27 11/16/18 13:27 Vital Signs Reviewed: Yes Course/Dx - Course Course Of Treatment: More yellow purulent material was able to be expressed by manual pressure and gentle squeezing. The are was cleansed with an alcohol pad. Pt tolerated well. Band-aid applied. Will start her with keflex for 5 days and have her or someone at [place] change the dressing daily until well healed. - Diagnoses Provider Diagnosis: Abscess Discharge - Sign-Out/Discharge Documenting (check all that apply): Patient Departure All imaging exams completed and their final reports reviewed: No Studies - Discharge Plan Condition: Stable Disposition: HOME Prescriptions: Cephalexin CAP* [Keflex CAP*] 500 mg PO BID #10 cap Patient Education Materials: Abscess (ED) Referrals: Jayda Diaz MD [Primary Care Provider] - Additional Instructions: If you develop a fever, shortness of breath, chest pain, new or worsening symptoms - please call your PCP or go to the ED immediately. 1) Please change the band-aid daily until well healed (likely 5-7 days) 2) Please start the Keflex (antibiotic) as prescribed - Billing Disposition and Condition Condition: STABLE Disposition: Home
[2018-11-16 13:30] VITALS: BP 127/61
== END 2018-11-16 13:50 | disposition home or self-care (01) ==
LOC: UCEAST 13:23
DX: L02.212 Cutaneous abscess of back [any part, except buttock and flank] (principal); Z87.891 Personal history of nicotine dependence
CPT/HCPCS: 99212; G0463

== ENCOUNTER → 2018-12-31 08:28 | Emergency (ER) | payer MEDICARE ==
--- OUTSIDE RECORDS SUMMARY | 2018-12-31 08:44 | XMS REPORT | Continuity of Care Document ---
:1940 External Reference #:[id number] Author Name Mau Smith Care Team Providers Name Role Phone Jayda Diaz MD Primary Care Physician Unavailable Payers Date Identification Numbers Payment Provider Subscriber Policy Number: [id number] Medicare Blue Ppo Sejal Raymundo PayID: [id number] [address] [address] [place] [address] Problems Active Problems Provider Date Closed fracture of humerus Lavell Guidry MD Onset: 08/25/2018 Family History Date Family Member(s) Observation Comments General Cancer Social History Type Date Description Comments Sex Unknown Lives With Spouse Occupation Retired ETOH Use Currently consumes alcohol Tobacco Use Start: Unknown End: Patient is a former smoker Unknown Smoking Status Reviewed: 12/08/18 Patient is a former smoker Exercise Type/Frequency Does not exercise Allergies, Adverse Reactions, Alerts Description No Known Drug Allergies Medications Active Medications SIG Qnty Indications Ordering Date Provider Shoulder Brace Large S42.211A Lavell Calvo Misc MD Chao 9 Right Bro Brace For combined right 1units S42.211A Lavell Calvo proximal humerus MD Chao 9 and humerus shaft fracture Oxycodone-Acetaminophen 1-2 by mouth every 56tabs Lavell Calvo 5-325mg 4-6 hours as MD Chao 9 Tablets needed pain Cyclobenzaprine HCL 1 tablet by mouth 60tabs Lavell Calvo 10mg tid prn muscle MD Chao 9 Tablets spasm Lisinopril Take 1 Tablet By Unknown 000 5mg Tablets Mouth Every Day 0 Hydrochlorothiazide Take 1 Tablet By Unknown 25mg Mouth Every Day 0 Tablets Multivitamin Adult Unknown 0 Eliquis 1 by mouth twice a Unknown 5mg Tablets day 0 Miralax take 1 packet Unknown 3350NF Packet daily as needed 0 for constipation [place]-3 Fish Oil Unknown 0 Glucosamine Chondroitin 1 by mouth every Unknown Plus MSM day 0 [id number] Tablets Vital Signs Date Vital Result Comment 12/08/2018 1:49pm Height 70 inches 5'10" Weight 155.00 lb Heart Rate 78 /min BP Systolic 120 mmHg BP Diastolic 72 mmHg Respiratory Rate 14 /min Pain Level 0 BMI (Body Mass Index) 22.2 kg/m2 10/23/2018 1:28pm Height 70 inches 5'10" Weight 155.00 lb Heart Rate 76 /min BP Systolic 100 mmHg BP Diastolic 60 mmHg Respiratory Rate 12 /min Pain Level 3 BMI (Body Mass Index) 22.2 kg/m2 09/25/2018 1:34pm Height 70 inches 5'10" Heart Rate 70 /min BP Systolic 118 mmHg BP Diastolic 70 mmHg Respiratory Rate 18 /min Body Temperature 97.8 F Pain Level 3 08/25/2018 1:22pm Height 70 inches 5'10" Heart Rate 68 /min BP Systolic 116 mmHg BP Diastolic 64 mmHg Respiratory Rate 18 /min Body Temperature 99.1 F Pain Level 4 08/05/2018 11:20am Height 70 inches 5'10" Weight 180.00 lb Heart Rate 72 /min BP Systolic 128 mmHg BP Diastolic 76 mmHg Respiratory Rate 12 /min Pain Level 4 BMI (Body Mass Index) 25.8 kg/m2 Encounters Type Date Location Provider Dx Diagnosis Office Visit 10/23/2018 Orthopedic Lavell F S42.341D Displ spiral fx 1:30p Services Of Yessica Guidry MD shaft of lorena lan arm 7thJuana S42.251D Disp fx of greater tuberosity of lorena lan 7thD Office Visit 09/25/2018 1:30p Orthopedic Lavell F S42.341D Displ spiral Services Of MD Chao fx shaft of lorena Zavala arm 7thJuana S42.251D Disp fx of greater tuberosity of r humer, 7thD S42.214D Unsp nondisp fx of surg nk of r humer, 7thD Office Visit 08/25/2018 1:15p Orthopedic Lavell Calvo I26.99 Other pulmonary Services Of MD Chao embolism without [facility] acute cor pulmonale S42.251D Disp fx of greater tuberosity of r humer, 7thD S42.341D Displ spiral fx shaft of humer, r arm, 7thD S42.214D Unsp nondisp fx of surg nk of r humer, 7thD Office Visit 08/20/2018 9:55a [facility] Zita Huston, I26.99 Other pulmonary Assoc,pc embolism Hospitalists without acute cor pulmonale S42.309A Unsp fracture of shaft of humerus, unsp arm, init Office Visit 08/19/2018 9:55a [facility] Zita Huston, I26.99 Other pulmonary Assoc,pc embolism Hospitalists without acute cor pulmonale S42.309A Unsp fracture of shaft of humerus, unsp arm, init E86.0 Dehydration Office Visit 08/18/2018 9:55a [facility] Zita Huston, I26.99 Other pulmonary Assoc,pc embolism Hospitalists without acute cor pulmonale S42.309A Unsp fracture of shaft of humerus, unsp arm, init E86.0 Dehydration K81.9 Cholecystitis, unspecified Office Visit 08/18/2018 10:54a Orthopedic Cheyanne S42.341D Displ spiral fx Services Of DERRELL Danielle shaft of humer, r arm, 7thD Office Visit 08/17/2018 9:54a [facility] I26.99 Other pulmonary Assoc,pc MD Celeste embolism Hospitalists without acute cor pulmonale K81.9 Cholecystitis, unspecified S42.309A Unsp fracture of shaft of humerus, unsp arm, init Office Visit 08/17/2018 7:00a Surgical Jeff Salazar K80.20 [facility] Tristin Hammer M.D. gallbladder w/o [employer] Analyst cholecystitis w/o obstruction K82.9 Disease of gallbladder, unspecified Office Visit 08/16/2018 9:54a [facility] E86.0 Dehydration Assoc,pc [place]oto, [employer] Hospitalists R06.02 Shortness of breath I10 Essential (primary) hypertension E43 Unspecified severe protein-calorie malnutrition R74.0 Nonspec elev of levels of transamns & lactic acid dehydrgnse E87.1 Hypo-osmolality and hyponatremia Office Visit 08/05/2018 10:30a Orthopedic Lavell Calvo S42.251A Disp fx of Services Of MD Chao greater [facility] tuberosity of right humerus, init S42.341A Displaced spiral fx shaft of humerus, right arm, init S42.214A Unsp nondisp fx of surgical neck of right humerus, init Plan of Treatment Future Appointment(s):03/10/2019 1:30 pm - Lavell Guidry MD at [facility]12/08/2018 - Lavell Guidry, MDS42.341D Displaced spiral fracture of shaft of humerus, right arm, suNew Therapy: Physical TherapyFollow up:Follow up: 3 months
--- NOTE | 2018-12-31 08:49 | ED ---
Adult Trauma - HPI Summary HPI Summary: Patient is a 78-year-old female who presents emergency Department via EMS for evaluation after a fall that occurred just prior to arrival. Patient resides at [facility]. Patient is unclear why she fell today. She ambulates with a cane on a regular basis. Patient denies chest pain, shortness of breath, syncope, lightheadedness or dizziness. Denies recent illness. She did sustain a right humeral fracture several months ago and has been following with orthopedics. Patient denies any complaints of pain at the moment but EMS reported neck pain and right arm pain. Patient arrives in a cervical collar. Symptoms are moderate in severity. No current modifying factors. - History of Current Complaint Chief Complaint: EDFall Stated Complaint: INJURIES FROM FALL PER EMS Time Seen by Provider: 12/31/18 08:41 Hx Obtained From: Patient Pain Intensity: 9 - Additional Pertinent History Primary Care Physician: OSBALDO - Allergy/Home Medications Allergies/Adverse Reactions: Allergies Allergy/AdvReac Type Severity Reaction Status Date / Time No Known Allergies Allergy Verified 08/05/18 17:00 Home Medications: Home Medications Calcium Carbonate/Vitamin D3 [Calcium 600-Vit D3 400 Tablet] 1 tab PO BID [History Confirmed 12/31/18] PMH/Surg Hx/FS Hx/Imm Hx Endocrine/Hematology History: Denies: Hx Diabetes, Hx Thyroid Disease Cardiovascular History: Reports: Hx Hypertension Respiratory History: Denies: Hx Asthma, Hx Chronic Obstructive Pulmonary Disease (COPD) Musculoskeletal History: Reports: Hx Arthritis Sensory History: Reports: Hx Contacts or Glasses - when driving or watching TV Denies: Hx Eye Injury, Hx Eye Prosthesis, Hx Glaucoma, Hx Legally Blind, Hx Macular Degeneration, Hx Vision Problem, Hx Deafness, Hx Hearing Aid, Hx Hearing Problem, Other Sensory Impairments Opthamlomology History: Reports: Hx Contacts or Glasses - when driving or watching TV Denies: Hx Eye Injury, Hx Eye Prosthesis, Hx Glaucoma, Hx Legally Blind, Hx Macular Degeneration, Hx Vision Problem, Other Sensory Impairments - Cancer History Cancer Type, Location and Year: Breast Cancer- mastectomy - Surgical History Surgery Procedure, Year, and Place: 2013 LEFT MASTECTOMY [facility]. APPENDECTOMY Hx Anesthesia Reactions: No Infectious Disease History: No Infectious Disease History: Denies: Hx Clostridium Difficile, Hx Hepatitis, Hx Human Immunodeficiency Virus (HIV), Hx of Known/Suspected MRSA, Hx Shingles, Hx Tuberculosis, History Other Infectious Disease, Traveled Outside the [place] in Last 30 Days - Family History Known Family History: Positive: Hypertension Negative: Cardiac Disease - Social History Alcohol Use: Daily Alcohol Amount: says one cup a day, except when needing to drive Substance Use Type: Reports: None Hx Tobacco Use: Yes Smoking Status (MU): Former Smoker Length of Time of Smoking/Using Tobacco: APPROX 15 YRS Have You Smoked in the Last Year: No Review of Systems Eyes: Negative Cardiovascular: Negative Negative: Palpitations, Chest Pain Respiratory: Negative Negative: Shortness Of Breath, Cough Gastrointestinal: Negative Negative: Abdominal Pain, Vomiting Genitourinary: Negative Positive: Other - right arm pain and neck pain Skin: Negative Neurological: Negative Negative: Headache, Weakness, Paresthesia, Numbness, Syncope All Other Systems Reviewed And Are Negative: Yes Physical Exam Triage Information Reviewed: Yes Vital Signs On Initial Exam: Initial Vitals Temp Pulse Resp BP Pulse Ox 97.8 F 85 16 109/61 93 12/31/18 08:33 12/31/18 08:33 12/31/18 08:33 12/31/18 08:33 12/31/18 08:33 Vital Signs Reviewed: Yes Appearance: Positive: Well-Appearing - Pt. lying flat on bed, cervical collar in place. Dried blood on face. Answers questions appropriately. present. Skin: Positive: Warm, Dry Head/Face: Positive: Normal Head/Face Inspection Eyes: Positive: Normal, EOMI, EARNEST ENT: Positive: Other - Dried blood in nares. Neck: Positive: Supple, Nontender, Other: - cervical collar in place Respiratory/Lung Sounds: Positive: Clear to Auscultation, Breath Sounds Present Cardiovascular: Positive: Normal, RRR Abdomen Description: Positive: Nontender, No Organomegaly Musculoskeletal: Positive: Normal, Strength/ROM Intact Neurological: Positive: Normal, Alert, Oriented to Person Place, Time, CN Intact II-III Psychiatric: Positive: Affect/Mood Appropriate - Gauri Coma Scale Best Eye Response: 4 - Spontaneous Best Motor Response: 6 - Obeys Commands Best Verbal Response: 5 - Oriented Coma Scale Total: 15 Diagnostics - Vital Signs Vital Signs Temp Pulse Resp BP Pulse Ox 12/31/18 08:33 97.8 F 85 16 109/61 93 - Laboratory Result Diagrams: 12/31/18 08:58 12/31/18 08:58 Lab Statement: Any lab studies that have been ordered have been reviewed, and results considered in the medical decision making process. Adult Trauma Course/Dx - Course Course Of Treatment: Pt. presenting with facial injury after fall. She declines pain and declines pain medication. ECG done at 0859 shows a sinus rhythm of 87bpm, right axis deviation, no ST elevation or depression. CT max: IMPRESSION : NONDISPLACED FRACTURE OF THE RIGHT NASAL BONE. CT neck: IMPRESSION: 1. LINEAR LUCENCY SEEN THROUGH THE ANTERIOR-INFERIOR ENDPLATE OF C5. THE DIFFERENTIAL. INCLUDES HYPEREXTENSION INJURY VERSUS FRACTURE THROUGH A BRIDGING MARGINAL OSTEOPHYTE. 2. OSTEOPENIA. 3. DEGENERATIVE DISC DISEASE AND OSTEOARTHRITIS. CXR and pelvis negative per radiology. Humeral xray shows chronic fx. CT discussed with Dr. Jiang and he would like pt. in a [place] J collar and would like MRI. Spine precautions in order. MRI cervical: IMPRESSION: 1. AGAIN NOTED IS A DEFECT OF THE ANTERIOR INFERIOR VERTEBRAL BODY OF C5 CONSISTENT WITH. A FRACTURE NOTED ON CT. THERE IS EDEMA TRACKING ALONG THE ANTERIOR LONGITUDINAL LIGAMENT. THE POSTERIOR LONGITUDINAL LIGAMENT AND LIGAMENTUM FLAVUM APPEAR INTACT. THERE IS EDEMA OF. THE INTRASPINOUS LIGAMENT WITH LOSS OF SIGNAL WITHIN THE SUPRASPINOUS LIGAMENT SUGGESTIVE. OF LIGAMENT INJURY. 2. DEGENERATIVE DISC DISEASE AND OSTEOARTHRITIS. 3. THERE IS MULTILEVEL NEUROFORAMINAL NARROWING DESCRIBED ABOVE. 4. THERE IS MODERATE NARROWING OF THE CENTRAL CANAL AT C5-C6 WITH MILD NARROWING AT C4-C5. AND C6- C7. Discussed with Dr. Jiang and he is concerned pt. will need surgery and states he is not available for sxs this week. He recommeds transfer. Discussed transfer and potential surgery with pt. and she states she does not want surgery and does not want to be transferred. Pt. has decision making compacity. Discussed with Dr. Arias and he will come in to ER to see pt. Pt. will be signed out to [facility] for disposition. - Diagnoses Differential Diagnosis/HQI/PQRI: Positive: Contusion(s), Fracture, Hematoma(s), Sprain, Strain Provider Diagnoses: Closed C5 fracture, Ligament laxity Discharge - Sign-Out/Discharge Documenting (check all that apply): Sign-Out Patient Signing out patient TO: Jeff Khanna Patient Received Moderate/Deep Sedation with Procedure: No - Discharge Plan Referrals: Jayda Diaz MD [Primary Care Provider] -
[2018-12-31 09:05] LABS: Hematocrit 37 % (35-47); Hemoglobin 12.9 g/dL (12.0-16.0); Mean Corpuscular HGB Conc 35 g/dL (31-36); Mean Corpuscular Hemoglobin 29 pg (27-31); Mean Corpuscular Volume 84 fL (80-97); Mean Platelet Volume 6.9 fL (7.4-10.4); Platelet Count 286 10^3/uL (150-450); Red Blood Count 4.43 10^6 /uL (3.70-4.87); Red Cell Distribution Width 15 % (10-15); White Blood Count 9.1 10^3/uL (3.5-10.8)
[2018-12-31 09:28] LABS: Activated Partial Thrombo Time 35.2 seconds (26.0-38.0); INR 1.13 (0.82-1.09)
[2018-12-31 09:34] LABS: Albumin 3.1 g/dL (3.2-5.2); BUN/Creatinine Ratio 21.1 (8-20); Calcium 8.4 mg/dL (8.6-10.3); EGFR African American 96.8 (>60); Globulin 3.1 g/dL (2-4); Potassium 3.8 mmol/L (3.5-5.0); Total Protein 6.2 g/dL (6.4-8.9)
[2018-12-31 10:19] LABS: ABS Basophils 0.1 10^3/ul (0-0.2); ABS Eosinophils 0.1 10^3/ul (0-0.6); ABS Lymphocytes 0.6 10^3/ul (1.0-4.8); ABS Monocytes 0.6 10^3/ul (0-0.8); ABS Neutrophils 7.8 10^3/ul (1.5-7.7); Eosinophil % 1.1 %; Lymphocyte % 6.5 %
[2018-12-31 16:06] LABS: Urine Appearance Cloudy; Urine Bacteria 1+ (Absent); Urine Bilirubin Negative (Negative); Urine Blood Negative (Negative); Urine Color Yellow; Urine Glucose Negative (Negative); Urine Ketones Negative (Negative); Urine Nitrite Negative (Negative); Urine Protein Negative (Negative); Urine Red Blood Cell 3+(>10/hpf) (Absent); Urine Specific Gravity 1.013 (1.010-1.030); Urine Squamous Epithelial Cell Present (Absent); Urine Transitional Epithelial Present (Absent); Urine Urobilinogen Negative (Negative); Urine White Blood Cell 1+(6-10/hpf) (Absent)
--- NOTE | 2018-12-31 20:17 | PN ---
Progress Note - Progress Note Date of Service: 12/31/18 Note: Patient signed out to me by Alexander DOVE pending evaluation by neurosurgery Dr. Ge. Dr. Ge came in to evaluate patient states patient likely to need stabilization surgery for possible [address] Ge is going out of town tomorrow and will be gone for 2 weeks and therefore we do not have coverage or neurosurgery, and thus he recommended transfer. Patient to be transferred to [place] [facility] to ED, accepting physician Dr. French. Patient transferred in stable condition with diagnosis of cervical fracture and cervical ligamentous injury due to fall.
--- NOTE | 2018-12-31 21:01 | CONS ---
CONSULTATION REPORT: DATE OF CONSULT: 12/31/18 - EMERGENCY DEPT HISTORY OF PRESENT ILLNESS: The patient is a very pleasant 78-year-old female who presented to the emergency room after a reported fall. The patient resides in [facility]. She reported she tripped and fell. She denies any loss of consciousness, denies any loss of memory. She denies any neck or back pain. She denies any new weakness, numbness, or tingling of her extremities. The patient has baseline weakness of the right upper extremity with decreased range of motion due to a recent fracture of the right humerus. The patient denies any urinary or GI incontinence. The patient is accompanied today by her and her son. I was requested to see the patient because of CT scan findings consistent with a C5 anterior inferior fracture suspicious for hyperextension injury. PAST MEDICAL HISTORY: Hypertension. PAST SURGICAL HISTORY: Mastectomy, appendectomy. MEDICATIONS: The patient is on, 1. Calcium carbonate. 2. Vitamin D3. ALLERGIES: No known drug allergies. FAMILY HISTORY: Hypertension. SOCIAL HISTORY: Tobacco: Negative. She is a former smoker. Alcohol: Socially. Recreational drug use: Negative. PHYSICAL EXAM: The patient is not in acute distress. She is awake, alert, oriented x3. Her pupils are equal and reactive. Cranial nerves II through XII are grossly intact. Motor 4 to 5/5 in all extremities with the exception of the right upper extremity. Has decreased range of motion especially in shoulder rotation, flexion and abduction due to her recent fracture. 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 Sensory grossly intact to light touch. Deep tendon reflexes +1 bilaterally. No clonus. No Babinski. Blank negative. Straight-leg test negative in the sitting position. The patient has [place] J collar on. She has no tenderness to palpation at the cervical spine. DIAGNOSTIC STUDIES/LAB DATA: The patient had a CT scan of the brain that reveals no significant evidence of acute injury. She had a CT scan of the cervical spine revealing anterior inferior fracture of C5. The patient had an MRI of the cervical spine that reveals similar findings with increased posterior segment changes with also increased signal at the interspinous ligament at C5-6 level. The patient had thoracic spine x-ray, which did not reveal any evidence of acute fracture, although bladder view is somewhat limited. The patient had a lumbar spine x-ray that did not reveal any evidence of fractures or subluxations. ASSESSMENT: The patient is a very pleasant 78-year-old female who is reported to have sustained a fall and had a C5 fracture. PLAN: The patient has done quite well and has adequate neurological condition, but based on the findings on the MRI and the CT scan, the suspicion of a hyperextension injury is raised with the possibility of 3 column injury. For this reason, I think I believe that the patient would benefit from surgical stabilization of C5-6 level. I discussed with the patient regarding her imaging findings as well as possible treatment options including conservative versus surgical intervention. Based on the imaging findings and the potential devastating sequelae of an unstable fracture, I think surgical intervention may be indicated for this patient. Because of the limited coverage in the next 2 weeks, would be happy to transfer the patient to another facility. The patient and her family understand and is agreeable with the plan. She knows to keep the collar on at all times and we will recommend spine precautions. Thank you for allowing us to participate in the care of this patient. Please do not hesitate to contact our office in case you have any further questions or concerns regarding the care of this patient. [id number]/CPS #: [id number] ROGE
[2018-12-31 21:55] VITALS: BP 126/64
== END | disposition home or self-care (01) ==
LOC: ED 08:28
DX: S12.400A Unspecified displaced fracture of fifth cervical vertebra, initial encounter for closed fracture (principal); M24.20 Disorder of ligament, unspecified site; S02.2XXA Fracture of nasal bones, initial encounter for closed fracture; W19.XXXA Unspecified fall, initial encounter; Y92.129 Unspecified place in nursing home as the place of occurrence of the external cause; I10 Essential (primary) hypertension; Z87.891 Personal history of nicotine dependence; M85.88 Other specified disorders of bone density and structure, other site; M51.37 Other intervertebral disc degeneration, lumbosacral region; K80.20 Calculus of gallbladder without cholecystitis without obstruction
CPT/HCPCS: 36415; 70450; 70486; 71045; 72070; 72100; 72125; 72141; 72170; 80053; 81003; 81015; 84484; 85025; 85610; 85730; 87077; 87086; 87186; 93005; 99283